=== PATIENT | female | born 1965 | race Caucasian/White ===

== ENCOUNTER → 2019-07-14 | Outpatient (REF) | payer OTHER ==
[~2019-07-14] MED LIST: PROZ40CA PO; RISP4TAB33 PO
[2019-07-14 12:57] LABS: BLOOD UREA NITROGEN 14 MG/DL (7-18); CALCIUM LEVEL 9.1 MG/DL (8.5-10.1); CARBON DIOXIDE LEVEL 29 MEQ/L (21-32); CHLORIDE LEVEL 106 MEQ/L (98-107); CHOLESTEROL LEVEL 167 MG/DL (<200); CHOLESTEROL RISK RATIO 4.282 (<5); CREATININE FOR GFR 1.02 MG/DL (0.55-1.30); FERRITIN 13 NG/ML (8-252); FOLATE > 24.0 NG/ML; FREE T4 0.97 NG/DL (0.76-1.46); GLOMERULAR FILTRATION RATE > 60.0 (>51); GLUCOSE, FASTING 112 MG/DL (70-100); HDL CHOLESTEROL 39 MG/DL (>40); IRON (FE) 18 UG/DL (50-170); LDL CHOLESTEROL 95 MG/DL (<100); NON-HDL-C 128 MG/DL; POTASSIUM SERUM 4.3 MEQ/L (3.5-5.1); SODIUM LEVEL 141 MEQ/L (136-145); TRIGLYCERIDES LEVEL 167 MG/DL (<150); VITAMIN B12 LEVEL 529 PG/ML
== END ==
LOC: M LABDRAWC 11:18
PROVIDERS: ATTEND Registered Nurse Community Health
DX: Z13.29 Encounter for screening for other suspected endocrine disorder (principal); F42.3 Hoarding disorder; E66.9 Obesity, unspecified; Z68.39 Body mass index [BMI] 39.0-39.9, adult; E55.9 Vitamin D deficiency, unspecified; R60.0 Localized edema; K21.9 Gastro-esophageal reflux disease without esophagitis; E78.2 Mixed hyperlipidemia